=== PATIENT | female | born 1945 | race Caucasian/White ===

== ENCOUNTER 2017-06-30 09:17 | Inpatient (IN) | payer MEDICARE ==
[~2017-06-30] VITALS: Ht 152.4 cm; Wt 79.0 kg
[~2017-06-30 09:17] MED LIST: ASPIR-LOW81 M1 PO; PLA75; ZES5 PO
[2017-06-30 10:45] LABS: UA SPECIFIC GRAVITY >=1.030 (1.005-1.035); microscopic required? YES; urine erythrocyte TRACE (NEGATIVE)
[2017-06-30 10:54] LABS: BASOPHIL % 0.2 % (0-2); PLATELET COUNT 207 x10^3mcL (130-400); RED CELL DISTRIBUTION WIDTH 13.4 % (11.5-14.5)
[2017-06-30 11:14] LABS: CALCIUM 8.7 mg/dL (8.5-10.1); CARBON DIOXIDE 25.6 mmol/L (21-32); CHLORIDE SERUM 103 mmol/L (98-107); CREATININE SERUM 0.8 mg/dL (0.6-1.0); GLUCOSE SERUM 153 mg/dL (74-106); POTASSIUM SERUM 4.2 mmol/L (3.5-5.1); SODIUM SERUM 139 mmol/L (136-145)
[2017-06-30 11:19] LABS: ALBUMIN 3.9 g/dL (3.4-5.0); ALKALINE PHOSPHATASE 93 U/L (46-116); ALT/SGPT 28 U/L (14-59); AST/SGOT 20 U/L (15-37); BILIRUBIN TOTAL 0.3 mg/dL (0.20-1.00); TOTAL PROTEIN, SERUM 7.6 g/dL (6.4-8.2)
[2017-06-30] MEDS ORDERED: SIMVASTATIN10 M1 PO (11:58)
[2017-06-30 12:35] LABS: MAGNESIUM 2.1 mg/dL (1.8-2.4); PHOSPHOROUS 3.7 mg/dL (2.5-4.9)
[2017-06-30 12:37] LABS: CHOLESTEROL/HDL RATIO 3.9
[2017-06-30 12:42] LABS: T3 TOTAL 1.26 ng/mL
[2017-06-30 12:54] LABS: FREE T4 1.16 ng/dL (0.76-1.46); FREE THYROXINE INDEX 3.6 ug/dL (1.4-4.5); T4(THYROXINE) 10.6 ug/dL (4.7-13.3)
[2017-06-30 13:31] VITALS: BP 138/50
[2017-06-30 13:42] VITALS: BP 138/50
[2017-06-30 23:15] VITALS: BP 138/50
[2017-07-01 05:53] VITALS: BP 144/44
[2017-07-01 05:54] LABS: BASOPHIL % 0.3 % (0-2); PLATELET COUNT 165 x10^3mcL (130-400); RED CELL DISTRIBUTION WIDTH 13.9 % (11.5-14.5)
[2017-07-01 06:10] LABS: CALCIUM 8.1 mg/dL (8.5-10.1); CARBON DIOXIDE 25.4 mmol/L (21-32); CHLORIDE SERUM 108 mmol/L (98-107); CREATININE SERUM 0.7 mg/dL (0.6-1.0); GLUCOSE SERUM 121 mg/dL (74-106); POTASSIUM SERUM 4.1 mmol/L (3.5-5.1); SODIUM SERUM 142 mmol/L (136-145)
[2017-07-01 10:46] VITALS: BP 155/53
[2017-07-01 15:06] VITALS: BP 149/57
[2017-07-01 17:52] VITALS: BP 151/47
[2017-07-01 21:30] VITALS: BP 160/54
[2017-07-02 05:09] VITALS: BP 134/44
[2017-07-02 06:02] LABS: BASOPHIL % 0.2 % (0-2); PLATELET COUNT 167 x10^3mcL (130-400); RED CELL DISTRIBUTION WIDTH 13.9 % (11.5-14.5)
[2017-07-02 08:43] VITALS: BP 151/68
[2017-07-02] MEDS ORDERED: LEVOFLOXACIN500 M1 PO (12:51)
[2017-07-02] MEDS ORDERED: LAC PO (12:52)
[2017-07-02] MEDS ORDERED: CLINDAMYCIN HC300 MG PO (12:52)
[2017-07-02] MEDS ORDERED: ROBDML PO (13:17)
[2017-07-02] MEDS ORDERED: GLU500 PO (13:18)
[2017-07-02] MEDS ORDERED: CEPACOL SORE TH1 LO4 MM (13:18)
[2017-07-02 13:21] VITALS: BP 173/51
[2017-07-02 13:29] VITALS: BP 173/54
[2017-07-02 15:14] VITALS: BP 137/68
[2017-07-02] MEDS ORDERED: ASPIR LOW81 MG (16:29)
== END 2017-07-02 17:55 | disposition home health service (06) | DRG 177 ==
LOC: ED 09:17 → DU 11:45
PROVIDERS: Emergency Medicine; ADMIT Family Medicine
DX: J69.0 Pneumonitis due to inhalation of food and vomit (principal); J96.00 Acute respiratory failure, unspecified whether with hypoxia or hypercapnia; I69.354 Hemiplegia and hemiparesis following cerebral infarction affecting left non-dominant side; D68.69 Other thrombophilia; E44.0 Moderate protein-calorie malnutrition; E11.65 Type 2 diabetes mellitus with hyperglycemia; E86.0 Dehydration; D64.9 Anemia, unspecified; K76.0 Fatty (change of) liver, not elsewhere classified; R32 Unspecified urinary incontinence; E66.9 Obesity, unspecified; Z68.33 Body mass index [BMI] 33.0-33.9, adult
CPT/HCPCS: 83880; 84439; 94150; 97110-GP; 97116-GP; 97530-GP; J0295; J1885; J1956; J2405; J3010; J3490; J7030; J7613; J7620; J7644; J8597; Q0092

== ENCOUNTER 2018-03-18 13:26 | Emergency (ER) | payer MEDICARE ==
[~2018-03-18] VITALS: Ht 152.4 cm; Wt 74.8 kg
[~2018-03-18 13:26] MED LIST changes: +ASPIR LOW81 MG; +CEPACOL SORE TH1 LO4 MM; +CLINDAMYCIN HC300 MG PO; +GLU500 PO; +LAC PO; +LEVOFLOXACIN500 M1 PO; +ROBDML PO; +SIMVASTATIN10 M1 PO
[2018-03-18 13:30] VITALS: Ht 152.4 cm; Wt 74.8 kg
[2018-03-18 14:01] LABS: BASOPHIL % 0.4 % (0-2); PLATELET COUNT 236 x10^3mcL (130-400); RED CELL DISTRIBUTION WIDTH 14.4 % (11.5-14.5)
[2018-03-18 14:29] LABS: CALCIUM 8.7 mg/dL (8.5-10.1); CARBON DIOXIDE 25.3 mmol/L (21-32); CHLORIDE SERUM 104 mmol/L (98-107); GLUCOSE SERUM 196 mg/dL (74-106); POTASSIUM SERUM 3.7 mmol/L (3.5-5.1); SODIUM SERUM 138 mmol/L (136-145)
[2018-03-18 14:34] LABS: ALBUMIN 3.6 g/dL (3.4-5.0); ALKALINE PHOSPHATASE 80 U/L (46-116); ALT/SGPT 25 U/L (14-59); AST/SGOT 17 U/L (15-37); BILIRUBIN TOTAL 0.3 mg/dL (0.20-1.00); TOTAL PROTEIN, SERUM 7.3 g/dL (6.4-8.2)
[2018-03-18 14:53] VITALS: BP 135/52
== END 2018-03-18 16:00 | disposition home or self-care (01) ==
LOC: ED 13:26
PROVIDERS: Emergency Medicine
DX: R07.89 Other chest pain (principal); R06.02 Shortness of breath
CPT/HCPCS: 83880; J1885; Q0092